=== PATIENT | female | born 1985 | race African-American/Black ===

== ENCOUNTER 2019-04-13 12:01 | Emergency (ER) | payer OTHER ==
[~2019-04-13] VITALS: Ht 167.6 cm; Wt 70.3 kg
[~2019-04-13 12:01] MED LIST: BACTRIM DS TAB1 EACH PO; FLAGYL500 MG PO; HYDROCODONE-AP1 EAC6 PO; IBUPROFEN 600600 M1 PO; NOHOMEMEDICATIONS
[2019-04-13 14:50] LABS: ABSOLUTE NEUTROPHILS 3.6 thou/uL (1.4-8.2); BASOPHILS 0.9 % (0.0-2.0); EOSINOPHILS 1.2 % (0.0-3.0); HEMATOCRIT 32.7 % (37.0-47.0); HEMOGLOBIN 11.3 gm/dL (12.0-15.0); LYMPHOCYTES 37.4 % (24.0-44.0); MCH 30.8 pg (26.0-34.0); MCHC 34.6 g/dL (28.0-37.0); MCV 89.1 fL (80.0-100.0); MONOCYTES 9.8 % (1.0-8.0); PLATELET COUNT 210 thou/uL (150-400); POLYS 50.7 % (36.0-66.0); RBC 3.67 mil/uL (4.20-5.00); RDW 12.4 % (10.5-14.5)
[2019-04-13 15:43] LABS: ABSOLUTE NEUTROPHILS 3.6 thou/uL (1.4-8.2); BASOPHILS 0.9 % (0.0-2.0); EOSINOPHILS 1.2 % (0.0-3.0); HEMATOCRIT 31.4 % (37.0-47.0); HEMOGLOBIN 10.7 gm/dL (12.0-15.0); LYMPHOCYTES 36.6 % (24.0-44.0); MCH 30.7 pg (26.0-34.0); MCHC 34.2 g/dL (28.0-37.0); MCV 89.9 fL (80.0-100.0); MONOCYTES 8.8 % (1.0-8.0); PLATELET COUNT 203 thou/uL (150-400); POLYS 52.5 % (36.0-66.0); RBC 3.49 mil/uL (4.20-5.00); RDW 12.5 % (10.5-14.5); WBC 6.9 thou/uL (4.0-11.0)
[2019-04-13 15:50] LABS: ANION GAP 12 mmol/L (7-16); BUN 6 mg/dL (7-18); CALCIUM 8.7 mg/dL (8.5-10.1); CHLORIDE 103 mmol/L (98-107); CO2 23 mmol/L (21-32); CREATININE 0.6 mg/dL (0.6-1.0); GLUCOSE 85 mg/dL (74-106); POTASSIUM 3.5 mmol/L (3.5-5.1); SODIUM 138 mmol/L (136-145)
[2019-04-13 15:59] VITALS: BP 114/81
[2019-04-13 16:00] LABS: ALBUMIN 3.8 g/dL (3.4-5.0); SGOT 17 U/L (15-37); SGPT 23 U/L (30-65); TOTAL BILIRUBIN 0.3 mg/dL (<0.1-1.0); TOTAL PROTEIN 7.4 g/dL (6.4-8.2); TROPONIN-I <0.06 ng/mL (<0.06)
[2019-04-13] MEDS ORDERED: FAMOTIDINE20 MG PO (16:15)
[2019-04-13] MEDS ORDERED: TORADOL 10 MG T10 MG PO (16:15)
--- NOTE | 2019-04-14 07:25 | EKG ---
[place] [address] [facility] [place] [address] ELECTROCARDIOGRAM REPORT Name: ISUARO ATWOOD [facility] [id number] ������������������ Admission: 04/13/19 ������������������ Attend Phys: Discharge: 04/13/19 ������������������ Date of : 83 Report #: [id number] ����������������������������������������������������������������� [id number] THIS REPORT FOR: //name// [facility] ED Test Date: 2019-04-13 Test Time: 12:06:07 Pat Name: ISAURO ATWOOD Department: Room: Gender: F Offset Pressman: JAYSHREE : 1985 Requested By: Vandana Casillas Order Number: [id number] MD: Jefferson Bynum Measurements Intervals [place] Rate: 100 P: 56 AL: 170 QRS: 23 QRSD: 79 T: 8 QT: 327 QTc: 422 Interpretive Statements Sinus tachycardia Otherwise normal No previous ECG available for comparison Electronically Signed On 04-14-2019 7:25:44 CDT by Jefferson Bynum [email or web address] ��������������������������������������������� <ELECTRONICALLY SIGNED> ���������������������������������������� By: Jefferson Bynum MD, [facility] ��������������������������������������������� 04/14/19 0725 1206 1206 Jefferson Bynum MD, FACC /EPI
== END 2019-04-13 15:59 | disposition home or self-care (01) ==
LOC: ER 12:01
PROVIDERS: Physician Assistant
DX: R07.89 Other chest pain (principal)